=== PATIENT | male | born 1960 | race Caucasian/White ===

== ENCOUNTER 2020-02-29 11:20 | Day surgery (SDC) | payer BC, OTHER ==
[~2020-02-29 11:20] MED LIST: Lactated Ringers 1,000 ML IV SCH; Sodium Chloride 0.9% 10 ML Syringe FLUSH PRN
[2020-02-29] MEDS ORDERED: fentaNYL 100 MCG/2 ML SDV ONE (12:17)
[2020-02-29] MEDS ORDERED: Propofol 200 MG/20 ML SDV ONE ×2 (12:17→12:47)
[2020-02-29 14:05] VITALS: PULSE 62
[2020-02-29 14:41] VITALS: BP 116/74
--- NOTE | 2020-03-01 19:06 | OR ---
DATE OF SURGERY: 02/29/2020. REFERRING PROVIDER: DENNIS De La Fuente PREOPERATIVE DIAGNOSES: 1. Rectal bleeding occurred 1 to 2 months ago with last episode about 6 weeks ago. 2. Unintentional weight loss. 3. Left upper quadrant abdominal pain for the past 2 to 3 months. 4. Positive family history of colon cancer in father, who was diagnosed at age 65. The patient is 4 years overdue for his colonoscopy. POSTOPERATIVE DIAGNOSES: 1. 5 cm x 1 cm linear sessile polyp/mass on haustral fold just at the entry to the cecum. This measured at about 70 cm from the anal verge, although the patient had quite redundant colon, making measurements from the anal verge unreliable. This linear polyp/mass was removed with multiple passes of the hot snare. 2. Mild to moderate sigmoid diverticulosis. 3. Significant hemorrhoids, not acutely bleeding. 4. Normal distal ileum. PROCEDURE: Colonoscopy with polypectomy x1 using hot snare and multiple passes of the hot snare. SURGEON: Surinder Isbell M.D. ANESTHESIA: Monitored anesthesia care. BOWEL PREP: Fair to good. Aldo is a 59-year-old male who was brought to the endoscopy suite after discussing risks and benefits of the procedure. Informed consent was obtained for conscious sedation and colonoscopy with or without biopsy and/or polypectomy. We also discussed possibility of missed lesions. Pre-procedure exam was unremarkable. IV, oxygen, and monitors were placed. The patient was placed in the left lateral decubitus position. Sedation was administered and a digital rectal exam was performed and remarkable for moderate to significant hemorrhoids, not acutely inflamed. Colonoscope was passed into the rectum and slowly advanced all the way to the cecum. Cecum was viewed and photographed. Ileocecal valve was intubated and distal ileum was normal in appearance. The colonoscope was slowly withdrawn and the mucosa was closed observed in a direct circumferential manner. The ascending colon was remarkable for a 5 cm x 1 cm linear sessile polyp/mass located on haustral fold just at the entry to the cecum. This was removed using multiple passes of the hot snare. One small area was also cauterized using the wire tip. The transverse colon was unremarkable. The descending colon was unremarkable. The sigmoid colon was remarkable for mild to moderate diverticulosis. Retroflexion was performed and rectal mucosa was remarkable for significant hemorrhoids, not acutely bleeding. Scope was removed. The patient tolerated the procedure well. The patient was monitored until that baseline status. Discharge instructions were reviewed and the patient was discharged in good condition. COMPLICATIONS: None. TOTAL TIME: 26 minutes. ESTIMATED BLOOD LOSS: 1 to 2 mL. RECOMMENDATIONS/FOLLOW-UP: We will await results of path report to determine the ideal followup interval. I would like to kindly thank Avni Berry for this referral. DMB: 02/29/2020 14:21:30 MODL: 02/29/2020 20:23:52 /[id number]
--- NOTE | 2020-03-01 19:06 | OR ---
SURGERY DATE: 02/29/2020. REFERRING PROVIDER: DENNIS De La Fuente PRE-OPERATIVE DIAGNOSIS: 1. History of bloody stools. 2. Weight loss, unintentional. 3. Left upper quadrant abdominal pain for past 2 to 3 months. 4. Nausea and vomiting. 5. Dysphagia, chronic, and located in the throat area. POST-OPERATIVE DIAGNOSIS: 1. Moderate duodenitis with friable polypoid tissue in the duodenal bulb, as well as in the junction between the first and second portions of the duodenum. Multiple biopsies taken both within the bulb and also the second portion of duodenum. 2. 2 cm sliding type hiatal hernia with some minimal esophagitis. 3. Mild antritis and chronic appearing gastritis. Cold biopsy x2 bites taken from the antrum to check for path and Helicobacter pylori. PROCEDURE: Esophagogastroduodenoscopy with cold biopsy x3 sites. SURGEON: Surinder Isbell M.D. ANESTHESIA: Monitored anesthesia care. Aldo is a 59-year-old male who was brought to the endoscope suite after discussion of risks and benefits (including but not limited to reaction to medication, bleeding, infection, aspiration, perforation). Informed consent was obtained for monitored anesthesia care and esophagogastroduodenoscopy along with possible biopsy and/or dilatation. Pre-procedure exam including oral cavity was unremarkable. IV, oxygen, and monitors were placed. Patient was placed in the left lateral position and sedation was administered. A bite block was placed gently and scope lightly lubricated and passed through the bite block and over the tongue. Hypopharynx and vocal cords were visualized and unremarkable. Scope was passed through the cricopharynx and into the esophagus. The scope was then passed through the distal esophagus and the GE junction was visualized and photographed. The GE junction was remarkable for a small 2 cm sliding type hiatal hernia with only some minimal esophagitis present. Vocal cords were visualized and unremarkable. The scope was advanced into the stomach and gastric alonzo was suctioned. Pylorus was identified and intubated and then the scope was advanced to the third portion of the duodenum. Third portion of duodenum unremarkable. The first and second portions of duodenum did reveal moderate duodenitis with the presence of scattered friable polypoid tissue within the duodenal bulb, as well as the junction between the first and second portions of the duodenum. Multiple biopsies were taken. No ulcerations were seen. The scope was brought back into the stomach. The pylorus and the antrum were remarkable for some mild antritis. Cold biopsy x2 bites taken for path and H. pylori. The scope was then retroflexed to visualize the angularis, fundus, body, and cardia. These were remarkable for some minimal to mild chronic appearing gastritis. The stomach was desufflated of air and then the scope was slowly withdrawn, and the esophagus was closely visualized during withdrawal all the way into the posterior pharynx. Esophagus was unremarkable. The patient tolerated the procedure well and went to recovery in stable condition. The patient was monitored until at baseline status. Findings and discharge instructions were reviewed and the patient was discharged in good condition. COMPLICATIONS: None. TOTAL TIME: 15 minutes. ESTIMATED BLOOD LOSS: 2 to 3 mL. RECOMMENDATIONS/FOLLOW-UP: We will await results of path report to determine the need for any further evaluation and/or treatment. In the meantime, I will start the patient on omeprazole 40 mg daily and prescription will be provided. I did recommend smoking cessation, as well as avoidance of NSAIDs and aspirin. I would like to kindly thank Avni Berry for this referral. DMB: 02/29/2020 14:17:05 MODL: 02/29/2020 20:06:45 /[id number]
== END 2020-02-29 15:10 | disposition home or self-care (01) ==
LOC: VM.SDS 11:20
PROVIDERS: ATTEND Family Medicine
DX: D12.0 Benign neoplasm of cecum (principal); K57.30 Diverticulosis of large intestine without perforation or abscess without bleeding; K29.80 Duodenitis without bleeding; K64.9 Unspecified hemorrhoids; K44.9 Diaphragmatic hernia without obstruction or gangrene; K20.9 Esophagitis, unspecified; K29.60 Other gastritis without bleeding; K31.89 Other diseases of stomach and duodenum; E78.2 Mixed hyperlipidemia; F17.210 Nicotine dependence, cigarettes, uncomplicated; Z01.812 Encounter for preprocedural laboratory examination; Z80.0 Family history of malignant neoplasm of digestive organs; Z88.0 Allergy status to penicillin; Z20.828 Contact with and (suspected) exposure to other viral communicable diseases
CPT/HCPCS: 00813; 43239; 45385; 87635; J2704; J3010; J7120; U0002